=== PATIENT | female | born 2000 | race Caucasian/White ===

== ENCOUNTER 2022-07-12 01:44 | Emergency (ER) | payer BC, SELFPAY ==
[2022-07-12] VITALS (7 sets, daily range): BP systolic 95–125; BP diastolic 41–78; PULSE 78–120; RESP 16–20; TEMP 36.7; O2SAT 96–99; BMI 24.3
[2022-07-12] MEDS: 0.9 % SODIUM CHLORIDE 1000 ml 1,000 ML IV (01:50)
[2022-07-12] MEDS: diphenhydrAMINE 50 MG/ML inj 25 MG IVP (01:50)
--- NOTE | 2022-07-12 01:53 | ED_ITS ---
HPI - General Adult General Chief complaint: Allergic Reaction Stated complaint: allergic reaction Time Seen by Provider: 07/12/22 01:48 Source: patient Mode of arrival: ambulatory History of Present Illness HPI narrative: 21-year-old female presents the emergency department with hives and lip swelling that started tonight. For dinner she had foods that are well known to her may have had a little more spice than usual but no new exposures of ingestion. She does note that she begin watching a cat for a friend about a week ago. She has had some mild reactions to cats in the past including itching eyes and face. She has never had a cat living in her home environment before. No vomiting. No shortness of breath. Does feel like the reaction is been worsening over the last couple of hours. Has not tried taking any antihistamines. No fevers or other recent illness. No pertinent travel. No prior history of reactions to other animals, substances or medications in the past. Past medical history she reports is benign, no major long-term health problems. No prescription medications. Social history is pertinent for tobacco use through of vape device and she also does smoke marijuana most days. ROS is notable for the allergic symptoms as above, otherwise denies times 12 systems. Related Data Previous Rx's Medication Instructions Recorded epinephrine 0.3 mg/0.3 mL 0.3 mg (0.3 mL) IM Q5-15M PRN #2 ea 07/12/22 injection, auto-injector (EpiPen 2-Matthew) Allergies Allergy/AdvReac Type Severity Reaction Status Date / Time No Known Drug Allergies Allergy Verified 07/12/22 02:00 [facility] Medical History (Updated 07/12/22 @ 02:33 by Tomasa Davison MD) No significant past medical history Surgical History (Updated 07/12/22 @ 02:08 by Ronnie Stoner RN) No significant past surgical history Social History Smoking Status: Never smoker Do you use any of these nicotine containing products: Vaping Products Second hand tobacco smoke exposure: No How often do you have a drink containing alcohol: never AUDIT-C Alcohol total score: 0 Non-prescribed substance use: marijuana (any form) Exam Const: Vital Signs, click to edit/add: Vital Signs - 24 hr 07/12/22 01:50 07/12/22 02:01 07/12/22 02:32 Temperature 98.0 F Pulse Rate 89 Pulse Rate [Right Pulse Oximeter] 120 H Respiratory Rate 20 16 Blood Pressure 106/73 Blood Pressure [Ri ght Upper Arm] 125/78 Pulse Oximetry 99 99 97 Oxygen Delivery Me thod Room Air 07/12/22 02:34 07/12/22 03:02 Temperature Pulse Rate 97 80 Pulse Rate [Right Pulse Oximeter] Respiratory Rate 16 16 Blood Pressure 107/53 L 95/41 L Blood Pressure [Ri ght Upper Arm] Pulse Oximetry 99 96 Oxygen Delivery Me thod Documenting provider has reviewed patient's vital signs: yes Common normals: no apparent distress General appearance: cooperative and well kempt HENMT: Common normals: normocephalic Head and scalp: normocephalic Other: Upper lip swollen, some mild facial swelling as well. Eyelids appear very mildly swollen, conjunctiva are injected. The inner oropharynx shows no swelling to the palate, pharynx or tongue. Lips are acyanotic. Eye: Other: Pupils are equal and round, mild swelling of the eyelids only. Neck & C-Spine: Common normals: no lymphadenopathy Resp: Common normals: normal respiratory effort, no use of accessory muscles and clear to auscultation bilaterally Effort & inspection: able to speak in complete sentences Auscultation: clear to auscultation bilaterally Cardio: Common normals: regular rate, regular rhythm, S1 normal heart sound, S2 normal heart sound and no murmurs Rate: regular rate Rhythm: regular rhythm Heart sounds: S1 normal and S2 normal Extremity: Other: Normal capillary refill, no joint swelling. Neuro: Gait (neuro): normal gait Motor exam: no movement abnormalities noted Psych: Appearance: well kempt Activity/motor behavior: appropriate eye contact Mood and affect: euthymic mood Skin: Narrative: Redness, mild swelling of extremities, hives on inner upper arm, abdomen, back, chest. No hives on face but face does appear mildly swollen. Course Vital Signs Vital signs: Initial Vital Signs Respiratory Effort Spontaneous 07/12/22 01:49 Respiratory Depth Normal 07/12/22 01:49 Respiratory Pattern 07/12/22 01:49 Vital Signs Temperature 98.0 F 07/12/22 01:50 Pulse Rate 120 H 07/12/22 01:50 Respiratory Rate 20 07/12/22 01:50 Blood Pressure 125/78 07/12/22 01:50 Pulse Oximetry 99 07/12/22 01:50 Oxygen Delivery Method 07/12/22 01:50 Temperature 98.0 F 07/12/22 01:50 Pulse Rate 80 07/12/22 03:02 Respiratory Rate 16 07/12/22 03:02 Blood Pressure 95/41 L 07/12/22 03:02 Pulse Oximetry 96 07/12/22 03:02 Oxygen Delivery Method 07/12/22 01:50 Medical Decision Making MDM Narrative Medical decision making narrative: IV is placed due to oral swelling. Patient is given 25 mg of IV Benadryl, 20 mg of oral prednisone, 20 mg of oral famotidine and normal saline 1 L is started. She will be watched on a cardiac rehabilitation specialist and continuous pulse ox to monitor for any signs of worsening respiratory status. Update: Patient with marked improvement in hives and swelling. This started around 30 minutes after administration of the antihistamine and I reassessed her about every 30 minutes. At the time of discharge, the swelling of her skin has improved markedly the hives are gone. The upper lip is still mildly swollen but the definition of her facial bones is back, the eyelid swelling is gone and there is no swelling inside the oral cavity. Alarm symptoms and plan of care discussed. She does not have access to Benadryl tonight. Will give 1 tablet for her to take home in case it is needed. EpiPen prescribed, discussed use. Zyrtec or Claritin daily for the next 5 days Benadryl every night and Benadryl q.6 p.r.n.. Have the kitten removed from her home, returned to its family. Discussed removal of bed linens and the kitten from her room tonight. Discharge Plan Discharge Clinical Impression: Allergic reaction Patient Disposition: Home w/ Parent or Adult Condition: Improved Instructions: General Allergic Reaction (ED) Additional Instructions: Most likely, you are reacting to the cat. Remember that those allergens are still in your home environment. As we discussed, you do need to get the cat out of your living environment as soon as possible. Tonight, you need to get the cat out of your sleeping environment 1st. Change your bedding, soft surfaces and do not let the cat back in your presence. You will need to continue using antihistamine for the next few days. Take a nondrowsy allergy medicine like Claritin, Louise or Zyrtec once daily for the next 5 days. Take 25 mg of Benadryl each night for the next 5 days. Continue using Benadryl 25 mg every 6 hours as needed for itching, hives or other similar signs of reaction. I will also give you a prescription for an EpiPen in case of future reactions. We are also sending her home with 1 Benadryl capsule to have on hand since that is the middle of the night and you might need this prior to the pharmacy opening. I would like for you to follow-up with your primary care doctor in 24- 48 hours to make sure that things are improving and to discuss allergy testing because your reaction was so severe. Again though, the most imperative step is getting the suspected allergen which is the cat out of your living environment. Come back to the emergency department if your symptoms worsen despite these measures. Activity Level: Activity as Tolerated Discharge Diet: Regular Prescriptions: New epinephrine [EpiPen 2-Matthew] 0.3 mg/0.3 mL auto-injector 0.3 mg IM Q5-15M PRNQty: 2 1RF Rx Instructions: do not exceed 3 doses per episode Follow Up/Referrals: Provider,Not a Local [Primary Care Provider] - Stand Alone Forms: [employer] Info Instructions
[2022-07-12] MEDS: predniSONE 10 MG TABLET 20 MG PO (01:55)
[2022-07-12] MEDS: FAMOTIDINE 20 MG TABLET PO (01:55)
[2022-07-12] MEDS: CETIRIZINE HCL 10 MG TABLET PO (02:40)
[2022-07-12] MEDS: diphenhydrAMINE 25 MG CAPSULE PO (03:45)
== END 2022-07-12 03:47 | disposition home or self-care (01) ==
PROVIDERS: Emergency Provider Family Medicine
DX: J30.81 Allergic rhinitis due to animal (cat) (dog) hair and dander (principal); L50.9 Urticaria, unspecified
CPT/HCPCS: 94761; 96374; 99283; A9270; J1200; J7030; J7512